=== PATIENT | male | born 1970 | race Caucasian/White ===

== ENCOUNTER 2016-08-17 14:14 | Emergency (ER) | payer OTHER | END 2016-08-17 15:40 | disposition short-term general hospital (02) | LOC: ER1 14:14 | DX: S00.83XA Contusion of other part of head, initial encounter (principal); E11.9 Type 2 diabetes mellitus without complications; W20.8XXA Other cause of strike by thrown, projected or falling object, initial encounter; Y92.830 Public park as the place of occurrence of the external cause | CPT/HCPCS: 70450; 72125; 96360; 99284 ==

== ENCOUNTER → 2020-09-28 | Outpatient (CLI) | payer OTHER ==
[~2020-09-28] MED LIST: BACTROBAN OINT22 GM; CYCLOBENZAPRINE10 MG PO; DOCUSATE SODIU100 MG PO; ELIQUIS2.5 MG PO; GLUCOPHAGE 850850 MG PO; HYDROCODON-ACE1 EAC2 PO; HYDROCODON-ACE1 EAC6 PO; IBUPROFEN200 MG PO; JARDIANCE10 MG PO; LANTUS INS100 UTS/M1 SC; LEVAQUIN750 MG PO; LEVEMIR100 UNIT/1 SQ; LEVOFLOXACIN500 MG PO; LORTAB 7.5-3251 EACH PO; NORCO 7.5-3251 EACH PO; NOVOLOG 10100 UNITS1 SQ; SENNA PLUS TAB1 EACH PO; THERAGRAN M TAB1 EA PO; VITAMIN C 500500 MG PO; ZYVOX 600 MG T600 MG PO
[2020-09-28 12:30] LABS: HEMOGLOBIN 13.3 gm/dl (14.0-17.5); RED BLOOD COUNT 4.77 M/UL (4.20-5.50); WHITE BLOOD COUNT 8.8 K/UL (4.5-11.0)
[2020-09-28 12:50] LABS: BUN/CREATININE RATIO 18 (0-10)
== END ==
LOC: OPSV2 11:00 → EDSTATUS 11:00 → OPSV2 11:42
PROVIDERS: Orthopaedic Surgery
DX: Z01.818 Encounter for other preprocedural examination (principal); S72.002A Fracture of unspecified part of neck of left femur, initial encounter for closed fracture
CPT/HCPCS: 36415; 80048; 83036; 85025; 85652; 86140; 87081; 93005

== ENCOUNTER 2020-10-02 14:18 | Inpatient (IN) | payer OTHER ==
[~2020-10-02] VITALS: Ht 182.9 cm; Wt 88.9 kg
[~2020-10-02 14:18] MED LIST changes: -BACTROBAN OINT22 GM; -CYCLOBENZAPRINE10 MG PO; -DOCUSATE SODIU100 MG PO; -ELIQUIS2.5 MG PO; -GLUCOPHAGE 850850 MG PO; -HYDROCODON-ACE1 EAC2 PO; -HYDROCODON-ACE1 EAC6 PO; -IBUPROFEN200 MG PO; -JARDIANCE10 MG PO; -LEVOFLOXACIN500 MG PO; -THERAGRAN M TAB1 EA PO
[2020-10-02 17:02] LABS: BUN/CREATININE RATIO 28 (0-10)
[2020-10-02 17:09] LABS: HEMOGLOBIN 14.1 gm/dl (14.0-17.5); RED BLOOD COUNT 5.07 M/UL (4.20-5.50); WHITE BLOOD COUNT 12.5 K/UL (4.5-11.0)
[2020-10-03] MEDS ORDERED: BACTROBAN OINT22 GM (17:18)
[2020-10-03] MEDS ORDERED: HYDROCODON-ACE1 EAC2 PO (17:19)
[2020-10-03] MEDS ORDERED: CYCLOBENZAPRINE10 MG PO (17:20)
[2020-10-03] MEDS ORDERED: IBUPROFEN200 MG PO (17:21)
[2020-10-04 05:47] LABS: HEMOGLOBIN 11.8 gm/dl (14.0-17.5); RED BLOOD COUNT 4.23 M/UL (4.20-5.50); WHITE BLOOD COUNT 7.9 K/UL (4.5-11.0)
[2020-10-04 06:00] LABS: BUN/CREATININE RATIO 16 (0-10)
[2020-10-05 04:44] LABS: HEMOGLOBIN 11.3 gm/dl (14.0-17.5); RED BLOOD COUNT 4.08 M/UL (4.20-5.50); WHITE BLOOD COUNT 8.8 K/UL (4.5-11.0)
[2020-10-05 05:05] LABS: BUN/CREATININE RATIO 14 (0-10)
[2020-10-06 05:54] LABS: HEMOGLOBIN 11.2 gm/dl (14.0-17.5); RED BLOOD COUNT 4.2 M/UL (4.20-5.50)
[2020-10-06 06:19] LABS: BUN/CREATININE RATIO 18 (0-10)
[2020-10-07 04:03] LABS: HEMOGLOBIN 11.6 gm/dl (14.0-17.5); RED BLOOD COUNT 4.15 M/UL (4.20-5.50)
[2020-10-07 04:21] LABS: BUN/CREATININE RATIO 21 (0-10)
[2020-10-08 04:34] LABS: HEMOGLOBIN 11.4 gm/dl (14.0-17.5); RED BLOOD COUNT 4.18 M/UL (4.20-5.50); WHITE BLOOD COUNT 7.6 K/UL (4.5-11.0)
[2020-10-08 05:17] LABS: BUN/CREATININE RATIO 16 (0-10)
[2020-10-09 06:28] LABS: BUN/CREATININE RATIO 16 (0-10)
[2020-10-10 06:29] LABS: HEMOGLOBIN 11.9 gm/dl (14.0-17.5); RED BLOOD COUNT 4.37 M/UL (4.20-5.50); WHITE BLOOD COUNT 9.1 K/UL (4.5-11.0)
[2020-10-10 06:55] LABS: BUN/CREATININE RATIO 19 (0-10)
[2020-10-10] MEDS ORDERED: ELIQUIS2.5 MG PO (10:41)
[2020-10-10] MEDS ORDERED: HYDROCODON-ACE1 EAC6 PO (10:41)
--- NOTE | 2020-10-10 13:59 | NUR ---
pacu nurse report obtained bs but no correction given.
--- NOTE | 2020-10-10 14:30 | NUR ---
patient resting comfortably at this time.
[2020-10-11 05:28] LABS: HEMOGLOBIN 10.1 gm/dl (14.0-17.5); RED BLOOD COUNT 3.69 M/UL (4.20-5.50); WHITE BLOOD COUNT 15.4 K/UL (4.5-11.0)
[2020-10-11 05:39] LABS: BUN/CREATININE RATIO 23 (0-10)
[2020-10-12 03:23] LABS: HEMOGLOBIN 10.1 gm/dl (14.0-17.5); RED BLOOD COUNT 3.72 M/UL (4.20-5.50); WHITE BLOOD COUNT 12.4 K/UL (4.5-11.0)
[2020-10-12 03:45] LABS: BUN/CREATININE RATIO 16 (0-10)
--- NOTE | 2020-10-12 11:56 | NUR ---
PATIENT BP 83/42, ASYMPTOMATIC. CONTACTED DR. CLARK, NEW ORDER FOR IV BOLUS OF 250 ML NS X1.
[2020-10-13 03:45] LABS: HEMOGLOBIN 9.8 gm/dl (14.0-17.5); RED BLOOD COUNT 3.57 M/UL (4.20-5.50); WHITE BLOOD COUNT 10.5 K/UL (4.5-11.0)
[2020-10-13 04:24] LABS: BUN/CREATININE RATIO 18 (0-10)
[2020-10-13] MEDS ORDERED: LEVOFLOXACIN500 MG PO (12:16)
[2020-10-13] MEDS ORDERED: JARDIANCE10 MG PO (12:16)
[2020-10-13] MEDS ORDERED: DOCUSATE SODIU100 MG PO (12:16)
[2020-10-13] MEDS ORDERED: GLUCOPHAGE 850850 MG PO (12:16)
[2020-10-13] MEDS ORDERED: THERAGRAN M TAB1 EA PO (12:16)
== END 2020-10-13 22:25 | DRG 616 ==
LOC: M/S 14:18
PROVIDERS: Family Medicine; Internal Medicine; Orthopaedic Surgery; ADMIT Internal Medicine Infectious Disease
PROC: 0Y6T0Z0 Detachment at Right 3rd Toe, Complete, Open Approach (ICD-10-PCS; principal; 2020-10-05 14:27)
PROC: 0SRB03Z Replacement of Left Hip Joint with Ceramic Synthetic Substitute, Open Approach (ICD-10-PCS; 2020-10-10)
DX: E11.69 Type 2 diabetes mellitus with other specified complication (principal); S72.012A Unspecified intracapsular fracture of left femur, initial encounter for closed fracture; E11.52 Type 2 diabetes mellitus with diabetic peripheral angiopathy with gangrene; E87.1 Hypo-osmolality and hyponatremia; I96 Gangrene, not elsewhere classified; L03.115 Cellulitis of right lower limb; M86.8X7 Other osteomyelitis, ankle and foot; E11.65 Type 2 diabetes mellitus with hyperglycemia; E11.649 Type 2 diabetes mellitus with hypoglycemia without coma; W18.30XA Fall on same level, unspecified, initial encounter; D72.829 Elevated white blood cell count, unspecified; D64.9 Anemia, unspecified; Z79.4 Long term (current) use of insulin; Y93.89 Activity, other specified; Y92.89 Other specified places as the place of occurrence of the external cause; Z89.411 Acquired absence of right great toe; Z80.1 Family history of malignant neoplasm of trachea, bronchus and lung; Z88.0 Allergy status to penicillin
CPT/HCPCS: 36415; 73501; 73502; 73600; 73630; 75635; 76000; 80048; 80053; 80202; 82962; 83735; 84443; 85025; 85027; 86850; 86900; 86901; 93005; 93926; 97110-GP-CQ; 97161; 97164; 97166; 97530; 97530-GP-CQ; A6212; C1713; C1776; J0690; J1100; J1650; J1885; J1956; J2001; J2250; J2370; J2405; J2704; J2710; J2795; J3010; J3370; J7030; J7050; J7070; J7120; P9045; P9047; Q9967; U0002; U0003

== ENCOUNTER 2020-12-25 16:42 | Inpatient (IN) | payer OTHER ==
[~2020-12-25] VITALS: Ht 185.4 cm; Wt 80.7 kg
[~2020-12-25 16:42] MED LIST changes: +BACTROBAN OINT22 GM; +CYCLOBENZAPRINE10 MG PO; +DOCUSATE SODIU100 MG PO; +ELIQUIS2.5 MG PO; +GLUCOPHAGE 850850 MG PO; +HYDROCODON-ACE1 EAC2 PO; +HYDROCODON-ACE1 EAC6 PO; +IBUPROFEN200 MG PO; +JARDIANCE10 MG PO; +LEVOFLOXACIN500 MG PO; +THERAGRAN M TAB1 EA PO
[2020-12-25 20:59] LABS: HEMOGLOBIN 13.1 gm/dl (14.0-17.5); RED BLOOD COUNT 4.85 M/UL (4.20-5.50); WHITE BLOOD COUNT 13.8 K/UL (4.5-11.0)
[2020-12-25 21:30] LABS: BUN/CREATININE RATIO 17 (0-10)
[2020-12-26 06:51] LABS: WHITE BLOOD COUNT 10.6 K/UL (4.5-11.0)
[2020-12-26 06:53] LABS: HEMOGLOBIN 10.9 gm/dl (14.0-17.5); RED BLOOD COUNT 4.16 M/UL (4.20-5.50)
[2020-12-26 07:34] LABS: BUN/CREATININE RATIO 15 (0-10)
[2020-12-27 05:03] LABS: BUN/CREATININE RATIO 14 (0-10)
--- NOTE | 2020-12-27 05:22 | NUR ---
PHARMACY NOTIFIED OF VANC TROUGH 22.2, PHARMACIST STATED TO ADMINSTER JEREMIAH THIS AM
[2020-12-28 06:57] LABS: HEMOGLOBIN 11.5 gm/dl (14.0-17.5); RED BLOOD COUNT 4.52 M/UL (4.20-5.50); WHITE BLOOD COUNT 8.6 K/UL (4.5-11.0)
[2020-12-28 07:09] LABS: BUN/CREATININE RATIO 21 (0-10)
--- NOTE | 2020-12-28 12:18 | NUR ---
Attempted to place PICC line in right basilic vein. Venous access obtained, but unable to reach SVC. PICC line removed and attempted to cut shorter, but remained unsuccessful. PICC line removed and sterile dressing applied.
[2020-12-29 05:26] LABS: HEMOGLOBIN 10.8 gm/dl (14.0-17.5)
[2020-12-29 05:28] LABS: RED BLOOD COUNT 3.91 M/UL (4.20-5.50); WHITE BLOOD COUNT 18.8 K/UL (4.5-11.0)
[2020-12-29 05:45] LABS: BUN/CREATININE RATIO 25 (0-10)
[2020-12-30 06:28] LABS: RED BLOOD COUNT 2.9 M/UL (4.20-5.50); WHITE BLOOD COUNT 11.5 K/UL (4.5-11.0)
--- NOTE | 2020-12-31 02:50 | NUR ---
7PM SHIFT- PATIENT REFUSES TO USE ABDUCTOR PILLOW
[2020-12-31 04:47] LABS: HEMOGLOBIN 8.3 gm/dl (14.0-17.5); RED BLOOD COUNT 3.03 M/UL (4.20-5.50); WHITE BLOOD COUNT 11.5 K/UL (4.5-11.0)
[2020-12-31 05:02] LABS: BUN/CREATININE RATIO 27 (0-10)
[2021-01-02 03:17] LABS: HEMOGLOBIN 7.6 gm/dl (14.0-17.5); RED BLOOD COUNT 2.77 M/UL (4.20-5.50); WHITE BLOOD COUNT 11.3 K/UL (4.5-11.0)
[2021-01-02 03:44] LABS: BUN/CREATININE RATIO 22 (0-10)
[2021-01-02] MEDS ORDERED: CYCLOBENZAPRINE10 MG PO (12:21)
[2021-01-03 06:55] LABS: HEMOGLOBIN 7.7 gm/dl (14.0-17.5); RED BLOOD COUNT 2.82 M/UL (4.20-5.50); WHITE BLOOD COUNT 8.5 K/UL (4.5-11.0)
[2021-01-03 07:26] LABS: BUN/CREATININE RATIO 21 (0-10)
[2021-01-04 04:24] LABS: HEMOGLOBIN 7.4 gm/dl (14.0-17.5); RED BLOOD COUNT 2.68 M/UL (4.20-5.50); WHITE BLOOD COUNT 8.2 K/UL (4.5-11.0)
[2021-01-04 04:39] LABS: BUN/CREATININE RATIO 28 (0-10)
[2021-01-05 07:40] LABS: HEMOGLOBIN 7.3 gm/dl (14.0-17.5); RED BLOOD COUNT 2.68 M/UL (4.20-5.50); WHITE BLOOD COUNT 8.1 K/UL (4.5-11.0)
[2021-01-05 08:04] LABS: BUN/CREATININE RATIO 26 (0-10)
[2021-01-06 07:45] LABS: RED BLOOD COUNT 2.75 M/UL (4.20-5.50)
[2021-01-06 08:09] LABS: BUN/CREATININE RATIO 25 (0-10)
[2021-01-06 22:40] LABS: HEMOGLOBIN 8.9 gm/dl (14.0-17.5); RED BLOOD COUNT 3.36 M/UL (4.20-5.50); WHITE BLOOD COUNT 11.1 K/UL (4.5-11.0)
[2021-01-07 05:13] LABS: HEMOGLOBIN 8.5 gm/dl (14.0-17.5); RED BLOOD COUNT 3.26 M/UL (4.20-5.50); WHITE BLOOD COUNT 10.7 K/UL (4.5-11.0)
[2021-01-07 05:32] LABS: BUN/CREATININE RATIO 27 (0-10)
[2021-01-08 06:25] LABS: HEMOGLOBIN 7.1 gm/dl (14.0-17.5); WHITE BLOOD COUNT 10.9 K/UL (4.5-11.0)
[2021-01-08 06:34] LABS: RED BLOOD COUNT 2.76 M/UL (4.20-5.50)
[2021-01-08 06:35] LABS: BUN/CREATININE RATIO 24 (0-10)
[2021-01-09 07:03] LABS: WHITE BLOOD COUNT 9.1 K/UL (4.5-11.0)
[2021-01-09 07:05] LABS: RED BLOOD COUNT 3.4 M/UL (4.20-5.50)
[2021-01-09 07:28] LABS: BUN/CREATININE RATIO 22 (0-10)
[2021-01-12 02:59] LABS: HEMOGLOBIN 8.3 gm/dl (14.0-17.5); RED BLOOD COUNT 3.18 M/UL (4.20-5.50); WHITE BLOOD COUNT 9.3 K/UL (4.5-11.0)
[2021-01-12 03:27] LABS: BUN/CREATININE RATIO 32 (0-10)
[2021-01-14 06:35] LABS: HEMOGLOBIN 8.1 gm/dl (14.0-17.5); RED BLOOD COUNT 3.14 M/UL (4.20-5.50); WHITE BLOOD COUNT 8.9 K/UL (4.5-11.0)
[2021-01-14 08:29] LABS: BUN/CREATININE RATIO 35 (0-10)
[2021-01-15 09:41] LABS: BUN/CREATININE RATIO 28 (0-10)
[2021-01-15 09:56] LABS: HEMOGLOBIN 9.4 gm/dl (14.0-17.5); WHITE BLOOD COUNT 9.3 K/UL (4.5-11.0)
[2021-01-15 09:58] LABS: RED BLOOD COUNT 3.63 M/UL (4.20-5.50)
[2021-01-16 06:46] LABS: HEMOGLOBIN 8.2 gm/dl (14.0-17.5); WHITE BLOOD COUNT 9.9 K/UL (4.5-11.0)
[2021-01-16 06:47] LABS: RED BLOOD COUNT 3.21 M/UL (4.20-5.50)
[2021-01-16 07:18] LABS: BUN/CREATININE RATIO 25 (0-10)
--- NOTE | 2021-01-16 14:19 | NUR ---
laly removed patient tolerated well, incision closed and intact.
[2021-01-17] MEDS ORDERED: POLYETHYLENE GL17 GM PO (08:59)
[2021-01-17] MEDS ORDERED: INVANZ 1 GM VIAL1 GM IV (08:59)
[2021-01-17] MEDS ORDERED: NYSTOP60 GM TOP (08:59)
[2021-01-17] MEDS ORDERED: HYDROCODON-ACE1 EAC2 PO (08:59)
[2021-01-17] MEDS ORDERED: LANTUS INS100 UTS/M1 SQ (08:59)
[2021-01-17] MEDS ORDERED: ELIQUIS 2.5 MG2.5 MG PO (08:59)
[2021-01-17] MEDS ORDERED: LOPRESSOR 25 MG25 MG PO (08:59)
[2021-01-17] MEDS ORDERED: CYCLOBENZAPRINE10 MG PO (08:59)
[2021-01-17] MEDS ORDERED: DOCUSATE SODIU100 MG PO (08:59)
[2021-01-17] MEDS ORDERED: OXYCODONE HCL5 MG PO (08:59)
[2021-01-17] MEDS ORDERED: FERROUS GLUCON324 M1 PO (08:59)
[2021-01-17] MEDS ORDERED: DEX4 GLUCOSE4 GM PO (09:12)
== END 2021-01-17 14:16 | DRG 463 ==
LOC: M/S 18:10
PROVIDERS: Internal Medicine; Orthopaedic Surgery; Physician Assistant Medical; ADMIT Internal Medicine
PROC: 30233N1 Transfusion of Nonautologous Red Blood Cells into Peripheral Vein, Percutaneous Approach (ICD-10-PCS; 2020-12-28)
PROC: 0SPB0JZ Removal of Synthetic Substitute from Left Hip Joint, Open Approach (ICD-10-PCS; principal; 2020-12-28 15:00)
PROC: 0SHB08Z Insertion of Spacer into Left Hip Joint, Open Approach (ICD-10-PCS; principal; 2020-12-28 15:00)
PROC: 02HV33Z Insertion of Infusion Device into Superior Vena Cava, Percutaneous Approach (ICD-10-PCS; 2021-01-02)
DX: T84.52XA Infection and inflammatory reaction due to internal left hip prosthesis, initial encounter (principal); L89.323 Pressure ulcer of left buttock, stage 3; D62 Acute posthemorrhagic anemia; Z20.822 Contact with and (suspected) exposure to COVID-19; Y83.9 Surgical procedure, unspecified as the cause of abnormal reaction of the patient, or of later complication, without mention of misadventure at the time of the procedure; L89.600 Pressure ulcer of unspecified heel, unstageable; K59.00 Constipation, unspecified; D50.9 Iron deficiency anemia, unspecified; L89.322 Pressure ulcer of left buttock, stage 2; Z96.642 Presence of left artificial hip joint; E11.621 Type 2 diabetes mellitus with foot ulcer; E11.65 Type 2 diabetes mellitus with hyperglycemia; F41.9 Anxiety disorder, unspecified; E83.42 Hypomagnesemia; Z89.431 Acquired absence of right foot; Z79.84 Long term (current) use of oral hypoglycemic drugs; Y92.89 Other specified places as the place of occurrence of the external cause; Z88.0 Allergy status to penicillin; Z88.8 Allergy status to other drugs, medicaments and biological substances; Z80.1 Family history of malignant neoplasm of trachea, bronchus and lung; Z59.0 Homelessness; Z98.890 Other specified postprocedural states; Z86.14 Personal history of Methicillin resistant Staphylococcus aureus infection
CPT/HCPCS: 36415; 36430; 71045; 73501; 73502; 76000; 80048; 80053; 80202; 82607; 82962; 83036; 83540; 83550; 83605; 83735; 84100; 85018; 85025; 85027; 85652; 86140; 86850; 86900; 86901; 86920; 87040; 87070; 87077; 87186; 87205; 97110; 97110-GP-CQ; 97162; 97166; 97530; 97530-GP-CQ; 97535; A6212; C1713; C1751; C1776; J1100; J1335; J1650; J1885; J1956; J2001; J2185; J2250; J2370; J2405; J2704; J2710; J2795; J3010; J3260; J3370; J3475; J7030; J7040; J7050; J7070; J7120; P9016; P9045; U0002

== ENCOUNTER → 2021-04-12 | Outpatient (CLI) | payer OTHER ==
[~2021-04-12] MED LIST changes: +DEX4 GLUCOSE4 GM PO; +ELIQUIS 2.5 MG2.5 MG PO; +FERROUS GLUCON324 M1 PO; +INVANZ 1 GM VIAL1 GM IV; +LANTUS INS100 UTS/M1 SQ; +LOPRESSOR 25 MG25 MG PO; +NYSTOP60 GM TOP; +OXYCODONE HCL5 MG PO; +POLYETHYLENE GL17 GM PO
[2021-04-12 14:54] LABS: WHITE BLOOD COUNT 7.9 K/UL (4.5-11.0)
== END ==
LOC: LAB 14:11
PROVIDERS: Orthopaedic Surgery
DX: T84.69XA Infection and inflammatory reaction due to internal fixation device of other site, initial encounter (principal)
CPT/HCPCS: 36415; 85048; 85652; 86140

== ENCOUNTER → 2021-05-28 | Outpatient (CLI) | payer OTHER ==
[2021-05-28 16:03] LABS: WHITE BLOOD COUNT 13.5 K/UL (4.5-11.0)
== END ==
LOC: LAB 13:49
PROVIDERS: Nurse Practitioner Family
DX: M12.88 Other specific arthropathies, not elsewhere classified, other specified site (principal)
CPT/HCPCS: 36415; 85048; 85652; 86140

== ENCOUNTER → 2021-08-03 | Outpatient (CLI) | payer OTHER | LOC: KOH-I 11:30 | DX: M61.50 Other ossification of muscle, unspecified site (principal); Z96.642 Presence of left artificial hip joint; M21.852 Other specified acquired deformities of left thigh | CPT/HCPCS: 73700 ==

== ENCOUNTER → 2021-08-03 | Outpatient (CLI) | payer OTHER ==
[2021-08-03 14:37] LABS: HEMOGLOBIN 11.1 gm/dl (14.0-17.5); RED BLOOD COUNT 4.52 M/UL (4.20-5.50); WHITE BLOOD COUNT 11.5 K/UL (4.5-11.0)
== END ==
LOC: LAB 13:28
PROVIDERS: Orthopaedic Surgery
DX: T84.52XA Infection and inflammatory reaction due to internal left hip prosthesis, initial encounter (principal)
CPT/HCPCS: 36415; 85027; 85652; 86140